=== PATIENT | female | born 1940 | race Caucasian/White ===

== ENCOUNTER 2017-04-12 15:15 | Inpatient (IN) | payer MEDICARE, BC ==
[2017-04-12 15:32] VITALS: BMI 29.2
--- NOTE | 2017-04-12 16:58 | HP ---
The patient is set for surgery on 04/16/2017. HISTORY OF PRESENT ILLNESS: Ms. Lozoya is a 76-year-old white female who has been having symptomati c pelvic organ prolapse with noted vaginal bulging and pressure. She also reports inability to evacu ate her stool completely because it was getting stuck up in the vagina at times. She also reports so me incontinence of stool that was due to hemorrhoids and has been evaluated by Dr. Elizondo who has re commended a hemorrhoidectomy. She has tried a pessary for the pelvic prolapse, but it would not fit right and she did not feel comfortable with it in place. She does also have loss of urine with cough ing and sneezing. PAST MEDICAL HISTORY: Chronic hypertension. OBSTETRIC HISTORY: A2. SOCIAL HISTORY: She does not smoke, does not drink. She is retired from [employer] and is . ALLERGIES: No known drug allergies. CURRENT MEDICATIONS: Amlodipine 2.5 mg daily, calcium, carvedilol 25 mg tablet daily, and Tylenol PM extra strength as needed for pain. FAMILY HISTORY: Significant for colon cancer in her mother and breast cancer in her mother. PHYSICAL EXAMINATION: VITAL SIGNS: Her blood pressure is 118/70, pulse 66, respirations 18, height 60 inches, weight 149 w ith a BMI of 29. HEENT: Within normal limits. CHEST: Clear to auscultation. HEART: Regular rate and rhythm. S1 and S2 heart sounds. No murmurs, rubs, or gallops. ABDOMEN: Nontender with no palpable masses. No hepatosplenomegaly. PELVIC: Vulva and vagina had no lesions. There was a grade 2 cystocele and grade 2-3 rectocele note d with significant external hemorrhoids noted. Cervix had no lesions. Uterus was small and nontende r. Uterus had a grade III prolapse, it was nontender. Adnexa were nontender with no masses. The pa tient did have a hypermobile UV angle of greater than 45 degrees. ASSESSMENT: This is a 76-year-old white female with symptomatic uterine prolapse grade 3 with a grad e 3 rectocele, grade 3 cystocele, and stress incontinence symptoms. Also symptomatic external hemorr hoids. PLAN: Proceed with robotic TLH/BSO with uterosacral vaginal vault suspension with anterior and poste rior repair with Solyx TVT with intraoperative cystoscopy. She will also undergo hemorrhoidectomy re pair by Dr. Elizondo in this current surgical plan. Schedule for surgery is on 04/16/2017. Risks and benefits have been discussed in detail with the patient. She is set for surgery.
[2017-04-16] MEDS ORDERED: Ketorolac Tromethamine 30 MG/ML VIAL ONE (06:13)
[2017-04-16] MEDS ORDERED: Bupivacaine/Epinephrine 0.25% 30 ML VIAL ONE (06:30)
[2017-04-16] MEDS ORDERED: CEFOXITIN SLOW IVP SCH (06:30)
[2017-04-16] MEDS ORDERED: Fentanyl 100 MCG/2 ML VIAL ONE (07:23)
[2017-04-16] MEDS ORDERED: Lidocaine 2% Jelly 5 ML TUBE ONE (09:04)
[2017-04-16] MEDS ORDERED: Lidocaine 1% w/Epinephrine 1:200K 30 ML VIAL ONE (09:23)
[2017-04-16] MEDS ORDERED: cefOXitin 2 GM VIAL ONE (10:06)
[2017-04-16] MEDS ORDERED: Ondansetron HCl/PF 4 MG/2 ML Vial IVP PRN ×2 (10:59→13:01)
[2017-04-16] MEDS ORDERED: Promethazine HCl 25 MG/ML VIAL SLOW IVP PRN (10:59)
[2017-04-16] MEDS ORDERED: Promethazine HCl 25 MG/ML VIAL IM PRN (10:59)
[2017-04-16] MEDS ORDERED: Promethazine HCl 25 MG/ML VIAL ONE (12:31)
[2017-04-16] MEDS ORDERED: Morphine 4 MG/ML Carpuject SLOW IVP PRN (13:01)
[2017-04-16] MEDS ORDERED: diphenhydrAMINE 25 MG CAP PO PRN (13:01)
[2017-04-16] MEDS ORDERED: Simethicone Chewable 80 MG TAB PO PRN (13:01)
[2017-04-16] MEDS ORDERED: traMADol HCl 50 MG TAB PO PRN (13:01)
[2017-04-16] MEDS ORDERED: Zolpidem Tartrate 5 MG TAB PO PRN (13:01)
[2017-04-16] MEDS: Ketorolac Tromethamine 30 MG/ML VIAL IVP SCH ×2 (13:33→20:01)
[2017-04-16] MEDS: Lactated Ringer's 1,000 ML IV SCH ×2 (13:36→20:02)
--- NOTE | 2017-04-16 13:49 | OP ---
DATE OF PROCEDURE: 04/16/2017 PREOPERATIVE DIAGNOSES: 1. A 76-year-old white female with grade 3 cystocele and rectocele. 2. Genuine stress incontinence. 3. Uterine procidentia. POSTOPERATIVE DIAGNOSES: 1. A 76-year-old white female with grade 3 cystocele and rectocele. 2. Genuine stress incontinence. 3. Uterine procidentia. PROCEDURE PERFORMED: 1. Robotic total laparoscopic hysterectomy, bilateral salpingo-oophorectomy with uterosacral vaginal vault suspension. 2. Anterior and posterior repair. 3. Solyx TVT with cystoscopy. SURGEON: Nidhi Pugh M.D. HISTORICAL ARCHEOLOGIST: Veronica Kelly M.D. ANESTHESIA: General endotracheal. ESTIMATED BLOOD LOSS: 50 mL. COMPLICATIONS: None. URINE OUTPUT: 1450 mL. PATHOLOGY: Uterus, cervix, bilateral tubes and ovaries. ANTIBIOTICS: Mefoxin 1 gram. FINDINGS: 1. Normal-appearing bilateral menopausal tubes, ovaries and uterus. 2. Cystoscopy of the bladder revealed no mucosal injury and no bladder mucosal lesions. 3. Bilateral ureteral orifices with efflux of Pyridium dye colored urine confirmed post procedure. DISPOSITION: The case was then turned over to Dr. Elizondo who is proceeding with a hemorrhoidectomy. Please see his dictation for the completion of this case. DESCRIPTION OF OPERATIVE PROCEDURE: The patient previously received informed consent in regards to mellissa lowe. She was taken back to the operating room where she received a general endotracheal anestheti c agent without complications. She was placed in dorsal lithotomy position with use of Tenzin stirrup s, prepped and draped in usual sterile fashion. A Pinto catheter was placed at this time. The cervi x was noted to be prolapsed past the vaginal introitus and it was grasped with a single-tooth tenacul um. The uterus sounded to 7.5 cm. A 6 cm KERRIE uterine manipulator with a 3.5 cm cervical cup was th en assembled and placed in the usual fashion. The tenaculum was removed. Attention was then turned to the abdomen where perspective trocar sites were infiltrated with 0.5% Marcaine with epinephrine. A 12 mm supraumbilical incision was made. Veress needle was placed into the peritoneal cavity. The patient pressure was noted to be less than 5 mmHg. Abdomen was insufflated to a patient pressure of 15 and approximately 4.5 liters of carbon dioxide gas. Veress needle was removed and a size 12 mm tr ocar was placed. Laparoscope was introduced through the trocar sleeve confirming proper placement an d entry. Additional bilateral lower quadrant 8 mm robotic trocars were placed along with a right upp er quadrant 11 mm operator assistant i cementing port. The patient was then placed in Trendelenburg position and the robo t was docked. I then proceeded to carry out the case from the operative console where my assistants remained at the bedside. The uterus is elevated on stretch cephalad, this outlined the uterosacral ligaments. The courses of the ureters were visualized laterally and the pelvic sidewall away from the uterosacral ligaments. T he mid portion of the peritoneum by the uterosacral ligaments were lifted with a bipolar fenestrated instrument and the peritoneum was incised longitudinally along the course of the uterosacral ligament . The peritoneum was dissected then laterally pushing the ureter more lateral away from the uterosac ral ligament sites. This was repeated on the right uterosacral ligament in similar fashion, Attention was then turned to performance of the hysterectomy. My operator assistant i cementing grasped the left fallopia n tube and the left infundibulopelvic ligament was isolated, was coagulated with bipolar fenestrated cautery and transected with monopolar scissors. Serial coagulation and dissection and the incision o f the broad ligament, hugging close to uterine specimen was carried out until the left round ligament was reached. It was coagulated and transected. The anterior leaf of the broad ligament and the ves icouterine peritoneum incision and peritoneum was incised with monopolar scissors. This allowed for a layering technique with dissection of the bladder atraumatically past the cervical vaginal junction that was delineated by the cervical cup from the manipulator site. The uterine vessels were again s keletonized in a layering fashion. They were coagulated internal cervical os region. This was ceferino pak in similar fashion on the patient's right side again with the right IP ligament being coagulated and transected. Serial coagulation of broad ligament was coagulated and transected until the right r ound ligament was reached. Again, the anterior leaf of the broad ligament was entered. Vesicouterin e peritoneum was incised and dissected in a layering technique, dropping the bladder safely away from the operative field. Uterine vessels again were skeletonized and cauterized in the internal cervica l os region. The bladder was ensured to be well away from the vaginal cuff and a good portion of the vagina was ma de at least 1.5 cm from the cup margin inferiorly to allow for good vaginal cuff closure and placeme nt of the uterosacral vaginal vault suspension sutures. The anterior colpotomy was then made with mo nopolar scissors starting from the 12 to 3 and 12 to 9 o'clock position, the uterine vessels again w ere coagulated in this direction with bipolar fenestrated cautery and the posterior colpotomy was com pleted from 6 to 3 and 6 to 9 o'clock. The specimen of the uterus was delivered in the vagina. The monopolar scissors was switched out with an [employer] needle form setter/driver. The vaginal cuff was elevated, any areas of ongoing bleeding was made hemostatic with bipolar fenestrated cautery. My operator assistant i cementing brought a Stratafix suture through the operator assistant i cementing port and the right angle of the vagina was then initiated w ith a closure, full thickness closure was carried out from the right-angle through middle the vaginal cuff to the left angle, back to the midline. Hemostasis was secured. The needle was removed intact . Then 0 Ethibond suture was brought through the right upper quadrant operator assistant i cementing port and the right v aginal cuff was then sutured with Ethibond suture through and through from the front to the back and also reefing some of the posterior cul-de-sac peritoneum to close off the posterior cul-de-sac. It w as then sutured through the previously made uterosacral window and this was then secured with the vag inal cuff being elevated by my operator assistant i cementing and securing uplifting the right side of the vaginal cuff. An additional suture of 0 Ethibond was again placed through and through and reefing along the posteri or cul-de-sac again to the right uterosacral ligament, elevating the vaginal cuff and tying this down in suturing technique. The needle was removed and additional 0 Ethibond suture was then again place d through the right upper quadrant ports. The vaginal cuff on the left side and the angle in the mid line was through and through plicated again through the left uterosacral ligament window which had pr eviously been developed. This was sutured down and an additional suture again was placed through and through the vaginal cuff, reaching along the posterior cul-de-sac and also plicating each uterosacra l ligaments together for vaginal cuff support. Once this was accomplished, the pelvis was irrigated and suctioned. Hemostasis on the pedicle sites were confirmed. The excess carbon dioxide gas was released from the abdomen as the robot was undocke d. The trocar sites were closed with a deep stitch of 0 Vicryl suture in gkaybg-hk-aqicl stitch fash ion at the umbilical incision site and the remainder of the trocar sites were closed with 4-0 Monocry l subcuticular with Dermabond. Attention was then to the vaginal portion of the surgery. The patient's legs were placed in a more l ithotomy position allowing for exposure of the vaginal surgical sites. The specimen had been removed . Pinto catheter was draining copious amounts of urine that was orange tinged due to preoperative Py ridium. A weighted speculum was placed in the vagina, the edges of the upper vaginal cuff along the suture line were grasped with 2 Allis clamps. The anterior vaginal mucosa was infiltrated with 1% li docaine with epinephrine. A midline incision was made with a scalpel and the edges of the anterior v aginal mucosa were grasped with Allis clamps and Allis Mikey's. The Metzenbaum scissors were utilize d to dissect under the anterior vaginal mucosa. The endopelvic fascia was dissected sharply and blun tly. This space was developed submucosally towards the junction of the inferior pubic ramus and symp hysis pubis bilaterally for placement of Solyx TVT. Once these tunnels had been developed, a Solyx T VT mesh trocar was assembled and the right side was placed on the patient's right side under the symp hysis pubis and inferior pubic ramus junction into the pubo-muscular space anchoring the trocar there . This was repeated in the same fashion on the left side, securing the mid urethral region with the TVT tape. A good snug fit was noted. Then, 2 additional vrkhov-ng-kdetc sutures of 2-0 Vicryl were placed in the pelvic fascia closing off the cystocele defect and the anterior vaginal mucosa was clos ed with interrupted uuguss-hi-kuokf sutures of 2-0 Vicryl, securing hemostasis. The cystoscope was then assembled. A 70 degree cystoscope was utilized. The bladder was distended w ith saline. The mucosal surface of the internal bladder was noted to be without lesions or any evide nce of trauma. There was no evidence of mesh placement noted. Bilateral ureteral orifices were loca pasha with efflux Pyridium stained urine confirmed bilaterally. The cystoscope was removed. The bladd er was redeflated with a Pinto catheter. Attention was then turned to the posterior repair. Two Allis clamps were placed in the 4 and 6 o'yenny ck position of the posterior vaginal introitus. The posterior vaginal mucosa was infiltrated with 1% lidocaine with epinephrine. The mucosa was elevated with pickups and then near the peritoneum it wa s incised with Metzenbaum scissors it was dissected submucosally up to the vaginal cuff margin. The edges of the mucosa were grasped intermittently with Allis clamps for countertraction. The rectocele was dissected both sharply and bluntly. Once this was completed, the upper posterior vaginal space, rectovaginal space was inspected and the rectocele was placed caudally with the use of a curved Deav er retractor. The upper most cephalad portion of the endopelvic fascia near the vaginal cuff angles were grasped with an Allis clamp and 0 Vicryl suture was utilized to place through this, covering the endopelvic defect. Continued placement in the endopelvic fascia working out toward the vaginal intr oitus was performed with interrupted [id number]-ii-[id number] sutures of 0 Vicryl suture, reducing the rectoce le endopelvic fascial defect. The rectocele defect was secured. Hemostasis along the line was confi rmed. Additional interrupted awjqoo-aq-tmoqq sutures of 2-0 Vicryl was then placed in the posterior vaginal mucosa, closing the mucosal defect. Hemostasis was confirmed. A rectal exam was performed a nd there was no evidence of inadvertent suture placement through the rectal mucosa. The case was then turned over to Dr. Elizondo who will be proceeding with the hemorrhoidectomy procedu re.
[2017-04-16] MEDS ORDERED: Propofol 200 MG/20 ML VIAL ONE (14:19)
[2017-04-16] MEDS ORDERED: ePHEDrine/0.9% NaCl/PF SYRINGE 50 mg/10 ml ONE (14:19)
[2017-04-16] MEDS ORDERED: Esmolol 100 MG/10 ML VIAL ONE (14:19)
[2017-04-16] MEDS ORDERED: Ondansetron HCl/PF 4 MG/2 ML Vial ONE (14:19)
[2017-04-16] MEDS ORDERED: Glycopyrrolate 0.2 MG/ML 5 ML SYRINGE ONE (14:19)
[2017-04-16] MEDS ORDERED: Lidocaine 1% PF 5 ML VIAL ONE (14:19)
[2017-04-16] MEDS ORDERED: Sodium Chloride For Inhalation 0.9% 3 ML NEB ONE (17:42)
[2017-04-16] MEDS ORDERED: Sodium Chloride 0.9% 10 ML ONE (17:43)
[2017-04-16] MEDS: Docusate Calcium (SURFAK) 240 MG CAP PO SCH (20:02)
[2017-04-17] MEDS: Ketorolac Tromethamine 30 MG/ML VIAL IVP SCH ×3 (01:51→13:39)
[2017-04-17 05:33] LABS: Hemoglobin 11.3 g/dL (12.0-16.0); Mean Corpuscular HGB CONC 33.8 g/dL (32.0-36.0); Mean Corpuscular Hemoglobin 33.6 pg (27.0-31.0); Mean Corpuscular Volume 99.4 fl (81.0-99.0); Mean Platelet Volume 7.7 fL (7.4-10.4); Platelet Count 208 thou/uL (130-400); RBC Distribution Width 11.3 % (11.5-14.5); Red Blood Cell (RBC) Count 3.36 mill/uL (4.20-5.40); White Blood Cell (WBC) Count 7.5 thou/uL (4.8-10.8)
[2017-04-17] MEDS: Lactated Ringer's 1,000 ML IV SCH ×2 (06:24→13:40)
[2017-04-17] MEDS: Docusate Calcium (SURFAK) 240 MG CAP PO SCH (08:35)
[2017-04-17] MEDS: traMADol HCl 50 MG TAB PO PRN ×3 (08:35→15:30)
[2017-04-17] MEDS ORDERED: Polyethylene Glycol 3350 17 GM Packet PO SCH (09:00)
[2017-04-17 12:43] VITALS: BP 135/63; TEMP 98.2
--- NOTE | 2017-04-17 20:57 | OP ---
DATE OF PROCEDURE: 04/16/2017 PREOPERATIVE DIAGNOSES: Internal hemorrhoids, external hemorrhoids. POSTOPERATIVE DIAGNOSES: Internal hemorrhoids, external hemorrhoids. OPERATION PERFORMED: PPH stapled hemorrhoidectomy, external hemorrhoidectomy x2 columns. SURGEON: Sacha Elizondo M.D. ANESTHESIA: General endotracheal. INDICATIONS: The patient is a 76-year-old white female. She had come to see me several months ago r egarding some degree or fecal incontinence. She was recognized to have a substantial rectocele, for which I had referred her to Gynecology. She also has internal and external hemorrhoids, but I did no t feel that these were the most likely cause of her fecal problems. She presents today for surgery w ith Dr. Pugh for a robotic hysterectomy as well as repair of her significant rectocele. I have rec ommended under the same anesthetic to proceed with a stapled hemorrhoidectomy for her internal hemorr hoids and excision of the two columns of external hemorrhoids. I began my operation, Dr. Pugh had finished her portion of the operation and the patient is in stab le condition. OPERATIVE PROCEDURE IN DETAIL: Informed consent was obtained from the patient. She was taken to the operating room where general endotracheal anesthesia was obtained. She underwent extensive gynecolo gic surgery per Dr. Pugh. She is already in dorsal lithotomy position using the Yellofin stirrups. The perianal area was previously prepped and draped in a sterile fashion in continuity with her supervisor cytology ecologic surgery. Digital rectal examination was performed. There was no evidence of intrarectal abnormality aside fro m the previously known hemorrhoidal disease. Local anesthetic was infiltrated in a 4 quadrant inters phincteric fashion using 0.25% Marcaine with epinephrine. The anal dilator was placed uneventfully f ollowed by the anal retractor which was secured in place with 4 sutures of 2-0 Vicryl. The partial o bturator was then utilized to place a pursestring suture of 2-0 Prolene several centimeters proximal to the dentate line. The stapling device was then obtained and maximally opened. The anvil was posi tioned above the pursestring suture and the pursestring was secured down around the post of the stapl er. The tails of the suture were pulled snugly proximally and the stapler was closed in the usual fa shion. The stapler was fired and then removed. The specimen was inspected and noted to be of approp riate width and thickness. The staple line was inspected using the partial obturator. There were several areas of mild oozing a long the staple line and each of these was repaired with a single interrupted suture of 3-0 Vicryl. Once meticulous hemostasis was obtained, the anal retractor was removed. Attention was turned to the external hemorrhoids. Both of these were treated in a similar fashion. They were grasped with an Allis clamp and excised in a radial jameel shaped fashion. Hemostasis was obtained with electrocautery. The defect was closed with a running suture of 3-0 Vicryl. Gelfoam w as placed up within the anal canal at the level of the staple line. There were no complications. Th e patient tolerated the procedure well and was taken to recovery room in stable condition.
== END 2017-04-17 15:45 | disposition home or self-care (01) | DRG 743 ==
LOC: SURG A 04-16 05:59 → 3SE 04-16 12:59
PROVIDERS: ADMIT Obstetrics & Gynecology; ATTEND Obstetrics & Gynecology
PROC: 0UT94ZZ Resection of Uterus, Percutaneous Endoscopic Approach (ICD-10-PCS; principal; 2017-04-16)
PROC: 0UT24ZZ Resection of Bilateral Ovaries, Percutaneous Endoscopic Approach (ICD-10-PCS; 2017-04-16)
PROC: 0UB74ZZ Excision of Bilateral Fallopian Tubes, Percutaneous Endoscopic Approach (ICD-10-PCS; 2017-04-16)
PROC: 0JQC0ZZ Repair Pelvic Region Subcutaneous Tissue and Fascia, Open Approach (ICD-10-PCS; 2017-04-16)
PROC: 0JQC0ZZ Repair Pelvic Region Subcutaneous Tissue and Fascia, Open Approach (ICD-10-PCS; 2017-04-16)
PROC: 0TSC4ZZ Reposition Bladder Neck, Percutaneous Endoscopic Approach (ICD-10-PCS; 2017-04-16)
PROC: 06BY0ZC Excision of Hemorrhoidal Plexus, Open Approach (ICD-10-PCS; 2017-04-16)
PROC: 8E0W4CZ Robotic Assisted Procedure of Trunk Region, Percutaneous Endoscopic Approach (ICD-10-PCS; 2017-04-16)
PROC: 0TJB8ZZ Inspection of Bladder, Via Natural or Artificial Opening Endoscopic (ICD-10-PCS; 2017-04-16)
DX: N81.3 Complete uterovaginal prolapse (principal); K64.4 Residual hemorrhoidal skin tags; K64.8 Other hemorrhoids; N81.6 Rectocele; N81.10 Cystocele, unspecified; N39.3 Stress incontinence (female) (male); M15.9 Polyosteoarthritis, unspecified
CPT/HCPCS: 36415; 85027; 88307; A4216; C1781; J0131; J0694; J1885; J2001; J2405; J2550; J2704; J3010

== ENCOUNTER 2017-04-12 15:20 | Outpatient (CLI) | payer MEDICARE, BC ==
[2017-04-12 16:34] LABS: #Basophils 0.1 thou/uL (0.0-0.2); #Eosinphils 0.1 thou/uL (0.0-0.7); #Lymphocytes 2.5 thou/uL (1.20-3.40); #Monocytes 0.6 thou/uL (0.11-0.59); #Neutrophils 3.4 thou/uL (1.40-6.50); %Basophils 1.5 % (0.0-1.0); %Lymphocytes 37.6 % (21.0-51.0); %Monocytes 9.2 % (0.0-10.0); %Neutrophils 50.6 % (42.0-75.0); Hemoglobin 13.4 g/dL (12.0-16.0); Mean Corpuscular HGB CONC 33.3 g/dL (32.0-36.0); Mean Corpuscular Hemoglobin 33.2 pg (27.0-31.0); Mean Corpuscular Volume 99.5 fl (81.0-99.0); Mean Platelet Volume 7.7 fL (7.4-10.4); Platelet Count 257 thou/uL (130-400); RBC Distribution Width 11.2 % (11.5-14.5); Red Blood Cell (RBC) Count 4.05 mill/uL (4.20-5.40); White Blood Cell (WBC) Count 6.6 thou/uL (4.8-10.8)
--- NOTE | 2017-04-12 16:41 | RAD ---
FRONTAL AND LATERAL IMAGING OF THE CHEST: DATE: 04/12/17. COMPARISON: None. HISTORY: Preoperative patient. FINDINGS: There is no pneumothorax or pleural fluid and no focal consolidation or alveolar edema. Heart and me diastinal contours are grossly unremarkable. IMPRESSION: No acute findings. POS: [facility]
[2017-04-12 16:55] LABS: ALT (SGPT) 17 U/L (8-55); AST (SGOT) 18 U/L (5-34); Albumin 4.3 g/dL (3.4-4.8); Alkaline Phosphatase 65 U/L (40-150); Anion Gap 10 mmol/L (10-20); BUN (Urea Nitrogen) 13 mg/dL (9.8-20.1); Bilirubin, Total 0.5 mg/dL (0.2-1.2); Calc. Creatinine Clearance 0 mL/min (70-130); Calcium 9.6 mg/dL (7.8-10.44); Carbon Dioxide 28 mmol/L (23-31); Chloride 103 mmol/L (98-107); Estimated GFR-MDRD 78; Globulin 2.5 g/dL (2.4-3.5); Glucose 94 mg/dL (83-110); Protein, Total 6.8 g/dL (6.0-8.3); Sodium 137 mmol/L (136-145)
== END 2017-04-12 15:21 | disposition home or self-care (01) ==
LOC: LABBT 15:20
PROVIDERS: ATTEND Obstetrics & Gynecology
DX: Z01.818 Encounter for other preprocedural examination (principal); K64.8 Other hemorrhoids; K64.4 Residual hemorrhoidal skin tags
CPT/HCPCS: 71046; 80053; 85025; 86850; 86900; 86901; 93005; 93010

== ENCOUNTER 2017-05-01 03:02 | Emergency (ER) | payer MEDICARE, BC | END 2017-05-01 03:50 | disposition home or self-care (01) | LOC: SCSER 03:02 | DX: N99.820 Postprocedural hemorrhage of a genitourinary system organ or structure following a genitourinary system procedure (principal); N93.9 Abnormal uterine and vaginal bleeding, unspecified; I10 Essential (primary) hypertension | CPT/HCPCS: 99283 ==

== ENCOUNTER 2017-12-10 11:59 | Outpatient (CLI) | payer MEDICARE, BC ==
--- NOTE | 2017-12-10 12:26 | RAD ---
CHEST TWO VIEWS: History: Bronchitis. Cough x 1 weeks. Comparison: 04-12-17 FINDINGS: Normal cardiac silhouette. The pulmonary vessels and hilum are normal. No masses or consolidation. No pneumothorax or osseous abnormalities. IMPRESSION: No acute cardiopulmonary process. POS: [facility]
== END 2017-12-10 12:00 | disposition home or self-care (01) ==
LOC: SCSRAD 11:59
PROVIDERS: ATTEND Nurse Practitioner Family
DX: J40 Bronchitis, not specified as acute or chronic (principal)
CPT/HCPCS: 71046

== ENCOUNTER 2018-01-17 13:25 | Outpatient (CLI) | payer MEDICARE, BC | END 2018-01-17 13:26 | disposition home or self-care (01) | LOC: BICMAMMO 13:25 | PROVIDERS: ATTEND Family Medicine | DX: Z12.31 Encounter for screening mammogram for malignant neoplasm of breast (principal); Z80.3 Family history of malignant neoplasm of breast | CPT/HCPCS: 77063; 77067 ==

== ENCOUNTER 2019-01-30 14:12 | Outpatient (CLI) | payer MEDICARE, BC ==
--- NOTE | 2019-01-30 14:46 | MMO ---
Bilateral MAMMO Bilat Screen [facility]. CLINICAL HISTORY: Patient is 78 years old and is seen for screening. The patient has the following family history of breast cancer: mother. The patient has no personal history of cancer. VIEWS: The views performed were: bilateral craniocaudal with tomosynthesis and bilateral mediolateral oblique with tomosynthesis. FILMS COMPARED: The present examination has been compared to prior imaging studies performed at [facility] on 09/22/2014, 11/18/2015, 12/26/2016 and 01/17/2018. This study has been interpreted with the assistance of computer-aided detection. MAMMOGRAM FINDINGS: There are scattered fibroglandular densities. There are no suspicious masses, suspicious calcifications, or new areas of architectural distortion. IMPRESSION: THERE IS NO MAMMOGRAPHIC EVIDENCE OF MALIGNANCY. A ROUTINE FOLLOW-UP MAMMOGRAM IN 1 YEAR IS RECOMMENDED. THE RESULTS OF THIS EXAM WERE SENT TO THE PATIENT. ACR BI-RADS Category 1 - Negative MAMMOGRAPHY NOTE: 1. A negative mammogram report should not delay a biopsy if a dominant of clinically suspicious mass is present. 2. Approximately 10% to 15% of breast cancers are not detected by mammography. 3. Adenosis and dense breasts may obscure an underlying neoplasm. Reported by: ELIZABETH ROCK MD Electonically Signed: [id number]
== END 2019-01-30 14:13 | disposition home or self-care (01) ==
LOC: BICMAMMO 14:12
PROVIDERS: ATTEND Family Medicine
DX: Z12.31 Encounter for screening mammogram for malignant neoplasm of breast (principal); Z80.3 Family history of malignant neoplasm of breast
CPT/HCPCS: 77063; 77067

== ENCOUNTER 2020-04-23 09:50 | Outpatient (CLI) | payer MEDICARE, BC ==
--- NOTE | 2020-04-23 10:34 | MMO ---
Bilateral MAMMO Bilat Screen [facility]. CLINICAL HISTORY: Patient is 79 years old and is seen for screening. The patient has the following family history of breast cancer: mother. The patient has no personal history of cancer. VIEWS: The views performed were: bilateral craniocaudal with tomosynthesis and bilateral mediolateral oblique with tomosynthesis. FILMS COMPARED: The present examination has been compared to prior imaging studies performed at [facility] on 11/18/2015, 12/26/2016, 01/17/2018 and 01/30/2019. This study has been interpreted with the assistance of computer-aided detection. MAMMOGRAM FINDINGS: There are scattered fibroglandular densities. There are no suspicious masses, suspicious calcifications, or new areas of architectural distortion. IMPRESSION: THERE IS NO MAMMOGRAPHIC EVIDENCE OF MALIGNANCY. A ROUTINE FOLLOW-UP MAMMOGRAM IN 1 YEAR IS RECOMMENDED. THE RESULTS OF THIS EXAM WERE SENT TO THE PATIENT. ACR BI-RADS Category 1 - Negative MAMMOGRAPHY NOTE: 1. A negative mammogram report should not delay a biopsy if a dominant of clinically suspicious mass is present. 2. Approximately 10% to 15% of breast cancers are not detected by mammography. 3. Adenosis and dense breasts may obscure an underlying neoplasm. Reported by: LILIANE MURILLO MD Electonically Signed: [id number]
== END 2020-04-23 09:51 | disposition home or self-care (01) ==
LOC: BICMAMMO 09:50
PROVIDERS: ATTEND Family Medicine
DX: Z12.31 Encounter for screening mammogram for malignant neoplasm of breast (principal); Z80.3 Family history of malignant neoplasm of breast
CPT/HCPCS: 77063; 77067

== ENCOUNTER 2021-04-25 09:13 | Outpatient (CLI) | payer MEDICARE, BC | END 2021-04-25 09:14 | disposition home or self-care (01) | LOC: BICMAMMO 09:13 | PROVIDERS: ATTEND Family Medicine | DX: Z12.31 Encounter for screening mammogram for malignant neoplasm of breast (principal); Z80.3 Family history of malignant neoplasm of breast | CPT/HCPCS: 77063; 77067 ==

== ENCOUNTER 2022-06-07 12:01 | Outpatient (CLI) | payer MEDICARE, BC | END 2022-06-07 12:02 | disposition home or self-care (01) | LOC: BICMAMMO 12:01 | PROVIDERS: ATTEND Family Medicine | DX: Z12.31 Encounter for screening mammogram for malignant neoplasm of breast (principal); Z80.3 Family history of malignant neoplasm of breast | CPT/HCPCS: 77063; 77067 ==

== ENCOUNTER 2023-05-22 12:04 | Outpatient (CLI) | payer MEDICARE ==
[2023-05-22 13:22] LABS: #Eosinphils 0.1 10x3/uL (0.0-0.5); #Monocytes 0.6 10x3/uL (0.0-1.1); #Neutrophils 3.1 10x3/uL (1.5-8.4); %Basophils 0.7 % (0.0-2.0); %Eosinophils 1.7 % (0.0-6.0); %Lymphocytes 29.1 % (18.0-47.0); %Monocytes 10.6 % (0.0-10.0); %Neutrophils 57.5 % (40.0-75.0); Hematocrit 40.1 % (34.9-44.5); Hemoglobin 13.6 g/dL (12.0-15.5); Mean Corpuscular HGB CONC 33.9 g/dL (32.0-36.0); Mean Corpuscular Hemoglobin 32.5 pg (27.0-33.0); Mean Corpuscular Volume 95.9 fl (81.6-98.3); Mean Platelet Volume 11.1 fl (7.4-10.4); Platelet Count 268 10x3/uL (150-450); RBC Distribution Width 12.4 % (11.5-14.5); Red Blood Cell (RBC) Count 4.18 10x6/uL (3.90-5.03); White Blood Cell (WBC) Count 5.4 10x3/uL (3.5-10.5)
[2023-05-22 13:48] LABS: Anion Gap 14 mmol/L (10-20); BUN (Urea Nitrogen) 12 mg/dL (9.8-20.1); Calc. Creatinine Clearance 0 mL/min (70-130); Calcium 9.4 mg/dL (7.8-10.44); Carbon Dioxide 25 mmol/L (23-31); Chloride 103 mmol/L (98-107); Estimated GFR 77; Glucose 79 mg/dL (83-110); Potassium 4.9 mmol/L (3.5-5.1); Sodium 137 mmol/L (136-145)
== END 2023-05-22 12:05 | disposition home or self-care (01) ==
LOC: LABBT 12:04
PROVIDERS: ATTEND Specialist
DX: Z01.818 Encounter for other preprocedural examination (principal); K62.3 Rectal prolapse
CPT/HCPCS: 71046; 80048; 83036; 85025; 93005; 93010

== ENCOUNTER 2023-09-21 17:09 | Observation (INO) | payer MEDICARE ==
[~2023-09-21 17:09] MED LIST: Iopamidol-370 76% 500 ML MDV (1 ML CHARGE) ONE
[2023-09-21 17:39] LABS: #Basophils 0.04 10x3/uL (0.0-0.2); %Basophils 0.3 % (0.0-1.0); %Eosinophils 3.6 % (0.0-10.0); %Lymphocytes 4.3 % (21.0-51.0); %Monocytes 5.4 % (0.0-10.0); %Neutrophils 86.1 % (42.0-75.0); Hematocrit 38.9 % (36.0-47.0); Hemoglobin 13.4 g/dL (12.0-16.0); Mean Corpuscular HGB CONC 34.4 g/dL (32.0-36.0); Mean Corpuscular Hemoglobin 32.8 pg (27.0-31.0); Mean Corpuscular Volume 95.1 fL (78.0-98.0); Mean Platelet Volume 10.3 fL (7.4-10.4); Platelet Count 261 10x3/uL (130-400); RBC Distribution Width 12.2 % (11.5-14.5); Red Blood Cell (RBC) Count 4.09 mill/uL (4.20-5.40)
[2023-09-21] MEDS ORDERED: Acetaminophen 500 MG TAB ONE (17:41)
[2023-09-21] MEDS ORDERED: Ondansetron PF 4 MG/2 ML Vial ONE (17:43)
[2023-09-21 17:52] LABS: INR-International Normal Ratio 1.2; PTT 34.7 sec (22.9-36.1); Prothrombin Time 15.1 sec (12.0-14.7)
[2023-09-21 17:57] LABS: ALT (SGPT) 12 U/L (8-55); AST (SGOT) 13 U/L (5-34); Alkaline Phosphatase 60 U/L (40-110); Anion Gap 15 mmol/L (10-20); BUN (Urea Nitrogen) 13 mg/dL (9.8-20.1); Bilirubin, Total 1.2 mg/dL (0.2-1.2); Calc. Creatinine Clearance 0 mL/min (70-130); Calcium 9.2 mg/dL (7.8-10.44); Carbon Dioxide 22 mmol/L (23-31); Chloride 99 mmol/L (98-107); Estimated GFR 79; Globulin 2.7 g/dL (2.4-3.5); Glucose 111 mg/dL (83-110); Lipase 22 U/L (8-78); Magnesium 1.6 mg/dL (1.6-2.6); Protein, Total 6.7 g/dL (5.8-8.1); Sodium 132 mmol/L (136-145)
[2023-09-21 18:01] LABS: Troponin I Less than 0.010 ng/mL (< 0.028)
[2023-09-21] MEDS ORDERED: cefTRIAXone (ROCEPHIN) 2 GM VIAL ONE (18:52)
[2023-09-21 20:45] LABS: Bacteria/HPF None Seen HPF (None Seen); Bilirubin Negative (Negative); Blood, Urine 2+ (Negative); CAUTI Indications for Culture Dysuria,urgency,freq; Clarity Clear (Clear); Glucose, Urine (Dipstick) Normal (Negative); Ketone, Urine 60 mg/dL (Negative); Leukocyte Negative Leu/uL (Negative); Nitrite Negative (Negative); Protein, Urine (Dipstick) 50 mg/dL (Neg-Trace); RBC/HPF Greater than 50 HPF (0-3); Urobilinogen Normal mg/dL (Less than 2)
[2023-09-21 20:47] LABS: Specific Gravity, Urine Greater than 1.060 (1.002-1.036)
[2023-09-21 20:48] LABS: Urine Culture Reflex No No
[2023-09-21] MEDS ORDERED: Acetaminophen 325 MG TAB PO PRN (23:21)
[2023-09-21] MEDS ORDERED: Ondansetron PF 4 MG/2 ML Vial IVP PRN (23:21)
[2023-09-21 23:39] VITALS: BMI 27.0
[2023-09-21] MEDS: Lactated Ringer's 1,000 ML IV SCH (23:48)
[2023-09-22 05:16] LABS: #Basophils Less than 0.03 10x3/uL (0.0-0.2); %Basophils 0.2 % (0.0-1.0); %Eosinophils 5.6 % (0.0-10.0); %Lymphocytes 9.3 % (21.0-51.0); %Monocytes 9.4 % (0.0-10.0); %Neutrophils 75.2 % (42.0-75.0); Hematocrit 32.1 % (36.0-47.0); Mean Corpuscular HGB CONC 34.3 g/dL (32.0-36.0); Mean Corpuscular Volume 96.4 fL (78.0-98.0); Mean Platelet Volume 10.5 fL (7.4-10.4); Platelet Count 183 10x3/uL (130-400); RBC Distribution Width 12.3 % (11.5-14.5); Red Blood Cell (RBC) Count 3.33 mill/uL (4.20-5.40)
[2023-09-22 05:43] LABS: Anion Gap 9 mmol/L (10-20); BUN (Urea Nitrogen) 9 mg/dL (9.8-20.1); Calc. Creatinine Clearance 79 mL/min (70-130); Calcium 8.4 mg/dL (7.8-10.44); Carbon Dioxide 25 mmol/L (23-31); Chloride 103 mmol/L (98-107); Estimated GFR 91; Glucose 91 mg/dL (83-110); Potassium 3.4 mmol/L (3.5-5.1); Sodium 134 mmol/L (136-145)
[2023-09-22] MEDS: Cholecalciferol 1,000 UNITS (25 MCG) TAB PO SCH (08:55)
[2023-09-22] MEDS: Carvedilol 25 MG TAB PO SCH (08:55)
[2023-09-22] MEDS: Heparin 5,000 UNITS/ML VIAL SC SCH (08:56)
[2023-09-22] MEDS: Cefepime 1 GM in Sodium Chloride 0.9% 100 ML IVPB SCH (08:56)
[2023-09-22] MEDS: Amlodipine 5 MG TAB PO SCH (20:08)
[2023-09-23] MEDS: Melatonin 3 MG TAB PO PRN (00:18)
[2023-09-23 09:12] VITALS: BP 135/75; TEMP 98.1
[2023-09-23] MEDS: CALCIUM CITRATE 250 MG PO SCH (11:02)
== END 2023-09-23 12:02 | disposition home or self-care (01) ==
LOC: ERS 17:09 → T4-B 21:50
PROVIDERS: ADMIT Internal Medicine; ATTEND Hospitalist
DX: N10 Acute pyelonephritis (principal); N13.30 Unspecified hydronephrosis; A41.9 Sepsis, unspecified organism; N36.8 Other specified disorders of urethra; E87.1 Hypo-osmolality and hyponatremia; I10 Essential (primary) hypertension; E87.6 Hypokalemia; Z79.82 Long term (current) use of aspirin; Z79.899 Other long term (current) drug therapy; Z88.8 Allergy status to other drugs, medicaments and biological substances
CPT/HCPCS: 74177; 80048; 80053; 81001; 83605; 83690; 83735; 83880; 84484; 85025 ×2; 85610; 85730; 87040; 87086; 93005; J0692; J0696; J1644; J2405; J3490; J7120 ×3; Q9967; 36415; 96372; 96374; 96375; 96376; G0378

== ENCOUNTER 2023-10-16 10:37 | Day surgery (SDC) | payer MEDICARE ==
[2023-10-12 12:18] VITALS: BMI 25.4
[2023-10-16] MEDS ORDERED: PROPOFOL 20 ML ONE (11:53)
[2023-10-16] MEDS ORDERED: Lidocaine 1% PF 5 ML VIAL ONE (11:53)
[2023-10-16] MEDS ORDERED: Ondansetron PF 4 MG/2 ML Vial ONE (11:53)
[2023-10-16] MEDS ORDERED: CEFAZOLIN 2 GM VIAL ONE (12:01)
[2023-10-16] MEDS ORDERED: Sodium Chloride 0.9% 100 ML ONE (12:02)
[2023-10-16] MEDS ORDERED: Rocuronium Bromide 10 MG/ML (10ML VIAL) ONE (12:18)
[2023-10-16] MEDS ORDERED: SUGAMMADEX SODIUM 200 MG/2 ML VIAL ONE (12:53)
[2023-10-16] MEDS ORDERED: fentaNYL 50 mcg/mL 1 mL Vial ONE (13:39)
== END 2023-10-16 14:35 | disposition home or self-care (01) ==
LOC: SDC 10:37
PROVIDERS: ATTEND Urology
PROC: 0T768DZ Dilation of Right Ureter with Intraluminal Device, Via Natural or Artificial Opening Endoscopic (ICD-10-PCS; principal; 2023-10-16)
DX: N13.30 Unspecified hydronephrosis (principal); N36.8 Other specified disorders of urethra; Z88.1 Allergy status to other antibiotic agents; Z79.899 Other long term (current) drug therapy
CPT/HCPCS: 52332; 74420; C1747; C1769; C2617; J2405; J2704; J3010; J3490

== ENCOUNTER 2024-02-12 13:27 | Outpatient (CLI) | payer MEDICARE | END 2024-02-12 13:28 | disposition home or self-care (01) | LOC: BICRAD 13:27 | PROVIDERS: ATTEND Family Medicine | DX: S76.312A Strain of muscle, fascia and tendon of the posterior muscle group at thigh level, left thigh, initial encounter (principal); M16.12 Unilateral primary osteoarthritis, left hip; M25.752 Osteophyte, left hip ==